=== PATIENT | female | born 1955 | race Caucasian/White ===

== ENCOUNTER 2022-11-01 09:07 | Outpatient (CLI) | payer MEDICARE, BC, SELFPAY ==
[2022-11-01 13:21] LABS: Basophils Absolute Auto 0.04 K/uL (0.00-0.30); Basophils Percent Auto 0.8 % (0.0-3.0); Eosinophils Percent Auto 11.6 % (0.0-7.0); Hematocrit 43.7 % (33.0-51.0); Hemoglobin* 14.7 gm/dL (12.0-16.0); Lymphocytes Percent Auto 24.8 % (20-44); Mean Corpuscular HGB Conc 34 gm/dL (32-36); Mean Corpuscular Hemoglobin 34 pg (26-34); Mean Corpuscular Volume 100 fL (80-100); Monocytes Percent Auto 6.7 % (0.0-11.0); Neutrophils Absolute Auto 2.94 K/uL (1.7-7.0); Neutrophils Percent Auto 56.1 % (42.0-72.0); Platelet Count* 252 K/uL (140-440); RDW Coefficient of Variation % 12.4 % (11.5-15.5); Red Blood Count 4.39 m/uL (4.00-5.20); White Blood Count* 5.24 K/uL (4.50-11.00)
[2022-11-01 13:25] LABS: Slide Review Reflex No
[2022-11-01 14:03] LABS: Vitamin D 25 Hydroxy* 38 ng/mL (30-80)
[2022-11-01 14:51] LABS: Chloride* 106 mmol/L (96-114); Potassium* 4.8 mmol/L (3.6-5.1); Sodium* 141 mmol/L (135-149)
[2022-11-01 14:54] LABS: Blood Urea Nitrogen* 12 mg/dL (7-30); Carbon Dioxide* 26 mmol/L (20-32); Cholesterol* 189 mg/dL (90-199); Creatinine* 0.5 mg/dL (0.5-1.5); Estimated Glomerular Filt Rate 102 ml/min; Glucose* 87 mg/dL (60-115); Triglycerides* 66 mg/dL (40-149)
[2022-11-01 14:55] LABS: Calcium* 9.7 mg/dL (8.4-10.6); HDL Cholesterol* 78 mg/dL (>=50); LDL Cholesterol Calculated 98 mg/dL (<100)
== END 2022-11-01 09:08 | disposition home or self-care (01) ==
PROVIDERS: PCP Nurse Practitioner Family; Visit Provider Nurse Practitioner Family
DX: Z00.00 Encounter for general adult medical examination without abnormal findings (principal); I10 Essential (primary) hypertension; Z13.21 Encounter for screening for nutritional disorder; Z13.0 Encounter for screening for diseases of the blood and blood-forming organs and certain disorders involving the immune mechanism; Z13.6 Encounter for screening for cardiovascular disorders; M85.80 Other specified disorders of bone density and structure, unspecified site; R21 Rash and other nonspecific skin eruption
CPT/HCPCS: 80048; 80061; 82306; 85025

== ENCOUNTER 2024-02-11 08:22 | Outpatient (CLI) | payer MEDICARE, BC, SELFPAY | END 2024-02-11 08:23 | disposition home or self-care (01) | PROVIDERS: PCP Nurse Practitioner Family; Visit Provider Nurse Practitioner Family | DX: I10 Essential (primary) hypertension (principal); Z13.220 Encounter for screening for lipoid disorders | CPT/HCPCS: 85027; 80053; 80061 ==

== ENCOUNTER 2025-02-19 09:10 | Outpatient (CLI) | payer MEDICARE, BC, SELFPAY | END 2025-02-19 09:11 | disposition home or self-care (01) | PROVIDERS: PCP Nurse Practitioner Family; Visit Provider Nurse Practitioner Family | DX: I10 Essential (primary) hypertension (principal); Z13.220 Encounter for screening for lipoid disorders | CPT/HCPCS: 80053; 80061; 85025 ==

== ENCOUNTER 2025-05-20 13:13 | Outpatient (CLI) | payer MEDICARE, BC, SELFPAY ==
--- NOTE | 2025-05-20 13:30 | CRLHL7_ITS ---
For Patients: As a result of the Century Cures Act, medical imaging exams and procedure reports are released immediately into your electronic medical record. You may view this report before your referring provider. If you have questions, please contact your health care provider. XR DXA Bone Mineral Density (BMD) Reason for exam: Osteopenia. Current height (in): 64. Weight (lb): 115. Menopause age: 47. Ethnicity: White. 1. Have you had a previous hip or vertebral fracture? No. 2. Have you had any fractures during your adult life which did not result from significant trauma (e.g., auto accident)? No. 3. Did either of your parents have a hip fracture? No. 4. Do you smoke? No. 5. Have you ever taken Glucocorticoids? No. 6. Do you have rheumatoid arthritis? No. 7. Do you have secondary osteoporosis? No. 8. Do you drink 3 or more alcoholic drinks per day? No. 9. Are you being treated for osteoporosis? No. 10. Have you ever taken any of the following medications: Actonel, Evista, Fosamax, Miacalcin, Reclast, Boniva, Forteo, HRT (i.e. estrogen/hormone therapy), Protelos, Prolia, Vitamin D, Calcium, other ??? please specify. ANSWER: Yes, HRT (i.e. estrogen/hormone therapy), vitamin D, calcium. 11. Do you have any of the following medical conditions: Anorexia or bulimia, asthma or emphysema, end stage renal disease, hyperparathyroidism, any seizure disorders, cancer, inflammatory bowel diseases, hysterectomy, other ??? please specify. ANSWER: No. 12. What was your maximum height (inches)? 64. 13. Do you perform weight bearing exercise regularly? Yes. 14. Do you regularly consume dairy products? Yes. 15. Do you drink caffeinated beverages? No. 16. At what age did your period start? 12. 17. Are you premenopausal? No. 18. How many full term pregnancies have you had? 3. 19. Have you ever missed your period for more than 6 months in a row (not including or menopause)? No. TECHNIQUE: Bone mineral density study was performed using the Vizimax. FINDINGS: The results of the study expressed as bone mineral density (BMD) are as follows: Lumbar spine L1 to L4: BMD: 1.074 g/cm2. T-score: 0.2. Z-score: 2.4. Radius Left 33%: BMD: 0.497 g/cm2. T-score: -3.3. Z-score: -1.1. IMPRESSION: Osteoporosis. Mat Cortés M.D. Diagnostic Radiologist [email or web address] bM/Dictated by: Mat Cortés MD @ 05/20/2025 3:55:00 PM (Electronically Signed)
--- NOTE | 2025-05-20 14:00 | CRLHL7_ITS ---
For Patients: As a result of the Century Cures Act, medical imaging exams and procedure reports are released immediately into your electronic medical record. You may view this report before your referring provider. If you have questions, please contact your health care provider. INDICATION: BILATERAL SCREENING MAMMOGRAM, ASYMPTOMATIC 69 Y/O FEMALE COMPARISON: 01/23/2024, 01/21/2023, 01/12/2022 TECHNIQUE: Digital mammogram in CC and MLO projections including computer-aided detection (CAD) and tomosynthesis. BREAST COMPOSITION: There are scattered areas of fibroglandular density. FINDINGS: No suspicious findings. ASSESSMENT: BI-RADS 1 Negative RECOMMENDATION: Annual screening mammogram. A lay language report of this examination will be provided to the patient. Dictated by: Mat Cortés MD @ 05/21/2025 10:10:46 (Electronically Signed)
--- OUTSIDE RECORDS SUMMARY | 2025-05-21 00:56 | XMS_ITS | Encounter Summary ---
Author Organization [facility] er Address [address] [place] [address] Care Team Providers Care Metal Model Maker Name Role Phone BrumfieldFarnaz APRN, TEST DIRECTOR Primary Care Provi yo Reason for Visit * Reason Comments Med Refill Encounter Details Date Type Department Care Team (Late st Contact Info) Description 06/12/2022 Refill [place] [address] [address] [place] [address] [place] [id number] Rash Social History Tobacco Use Types Packs/Day Years Used Date Smoking Tobacco: Former Cigarettes Q uit: 2002 Smokeless Tobacco: Never Alcohol Use Standard Drinks/Week Comments Yes 0 (1 standard drink = 0.6 oz pur e alcohol) Humiliation, Afraid, Rape, and Kick questionnair e Answer Date Recorded Fear of Current or Ex-Partner No Emotionally Abused No 09/04/2019 Physically Abused No 09/04/2019 Sexually Abused No 09/04/2019 Social Connection and Isolat ion Panel [NHANES] Answer Date Recorded Frequency of Communication w ith Friends and Family More than three times a week 09/04/2019 Frequency of Social Gatherin gs with Friends and Family More than three times a week 09/04/2019 Attends Voodoo Services Never 09/04 Active Member of Clubs or Organizations No 09/04/2019 Attends Club or Organization Meetings Never 09/04/2019 Marital Status 09/04/2019 AUDIT-C Answer Date Recorded Q1: How often do you have a drink containing alc ohol? Never 12/27/2020 Q2: How many drinks containi ng alcohol do you have on a typical day when you are drinking? 1 or 2 12/27/2020 Frequency of Binge Drinking Not on file 12/2020 Overall Financial Resource Strain (CARDIA) Answe r Date Recorded How hard is it for you to pa y for the very basics like food, housing, medical care, and heating? Not hard at all 12/27/2020 PHQ-2 Answer Date Recorded PHQ-9 Total Score 0 10/06/2020 [facility] - Occupational Stress Questionnaire Answer Date Recorded Feeling of Stress Only a little 09/04/2019 Exercise Vital Sign Answer Date Recorde d Days of Exercise per Week 7 days 2018 Minutes of Exercise per Session 50 min 09/04/2019 Hunger Vital Sign Answer Date Recorded Within the past 12 months, y ou worried that your food would run out before you got the money to buy more. Never true 12/27/19 21 Within the past 12 months, t he food you bought just didn't last and you didn't have money to get more. Never true 12/27/2020 PRAPARE - Transportation Answer Date Re corded In the past 12 months, has l ack of transportation kept you from medical appointments or from getting medications? No 12/2020 In the past 12 months, has l ack of transportation kept you from meetings, work, or from getting things needed for daily living? No 12/27/2020 Comments No Sex and Gender Information Value Date Recorded Sex Assigned at Not on file Legal Sex Female 8:27 PM CDT Gender Identity Not on file Sexual Orientation Not on file documented as of this encounter Miscellaneous Notes * Telephone Encounter - Sandee Fraga - 06/14/2022 1:41 PM CDT Contacted to make med review appt; not interested at this time. * Telephone Encounter - Minna Pizano RN - 06/14/2022 12:54 PM CDT Please call the patient to schedule a medication review if she'd like * Telephone Encounter - Minna Pizano RN - 06/12/2022 11:56 AM CDT Review medication request. * Telephone Encounter - Genoveva Smyth LPN - 06/12/2022 11:30 AM CDT Last visit in provider department: 12/27/2020 Last visit requested medication was discussed: 10/06/2020 Last Rx: 30g with 0 refills 11/02/2021 Requested Prescriptions Pending Prescriptions Disp Refills ??? triamcinolone (KENALOG) 0.1 % cream [Pharmacy Med Name: TRIAMCINOLONE ACETONIDE 0.1% CREA] 30 g0 Sig: APPLY TO AFFECTED AREA(S) 1-2 TIMES A DAY NEEDED Labs: N/A Vitals: BP Readings from Last 2 Encounters: 12/27/20 120/72 10/06/20 122/68 Upcoming appointment with provider: Visit date not found Patient is due for Annual Well Adult Exam appointment. PSR/Nurse: Please contact patient to assist with scheduling. documented in this encounter Plan of Treatment Not on file documented as of this encounter Visit Diagnoses Diagnosis Rash Rash and other nonspecific skin eruption documented in this encounter Care Teams Metal Model Maker Relationship Specialty Start Date End Date Farnaz Brumfield, DIRECTOR HUMAN SERVICES, TEST DIRECTOR [address] [place] [address] PCP - General Family Medicine 06/25/22 documented as of this encounter
--- OUTSIDE RECORDS SUMMARY | 2025-05-21 00:56 | XMS_ITS | Encounter Summary ---
Author Organization [facility] er Address [address] [place] [address] Care Team Providers Care Label Maker Name Role Phone Farnaz Brumfield APRN, REPAIR SERVICE CLERK Primary Care Provi yo Encounter Details Date Type Department Care Team (Late st Contact Info) Description 09/24/2019 Telephone Dajuan Ramos [address] [place] [address] Farnaz Brumfield, SILVIA, REPAIR SERVICE CLERK [address] [id number] Social History Tobacco Use Types Packs/Day Years Used Date Smoking Tobacco: Former Smokeless Tobacco: Never Alcohol Use Standard Drinks/Week [...] than three times a week 09/04/2019 Attends Taoist Services Never 09/04 Active Member of Clubs or Organizations No 09/04/2019 Attends Club or Organization Meetings Never 09/04/2019 Marital Status 09/04/2019 AUDIT-C Answer Date Recorded Frequency of Alcohol Consumption Never 09/17/2018 Average Number of Drinks 1 or 2 018 Frequency of Binge Drinking Not on file 08/26 Overall Financial Resource Strain (CARDIA) Answe r Date Recorded Difficulty of Paying Living Expenses Not hard at all 09/04/2019 PHQ-2 Answer Date Recorded PHQ-2 Score 0 03/25/2019 [facility] - Occupational Stress Questionnaire Answer Date Recorded Feeling of Stress Only a little 09/04/2019 Exercise Vital Sign Answer Date Recorde d Days of Exercise per Week 7 days 2018 Minutes of Exercise per Session 50 min 09/04/2019 Hunger Vital Sign Answer Date Recorded Worried About Running Out of Food in the Last Ye ar Never true 09/04/2019 Ran Out of Food in the Last Year Never true 09/04/2019 PRAPARE - Transportation Answer Date Re corded Lack of Transportation (Medical) No 09/04/2019 Lack of Transportation (Non-Medical) No 09/04/2019 Comments No Sex and Gender Information Value Date Recorded Sex Assigned at Not on file Legal Sex Female 8:27 PM CDT Gender Identity Not on file Sexual Orientation Not on file documented as of this encounter Plan of Treatment Not on file documented as of this encounter Visit Diagnoses Not on filedocumented in this encounter Care Teams Label Maker Relationship Specialty Start Date End Date Farnaz Brumfield, PELLETISING EXTRUDER OPERATOR, REPAIR SERVICE CLERK [address] [place] [address] PCP - General Family Medicine 06/25/22 documented as of this encounter
--- OUTSIDE RECORDS SUMMARY | 2025-05-21 00:56 | XMS_ITS | Clinical Summary ---
Author Organization [facility] Address [address] [place] [address] Care Team Providers Care Oil Field Equipment Mechanic Name Role Phone Rosario Posey Unavailable [phone] Rosario Posey Primary Care Provider [phone] Allergies No known active allergies Medications triamcinolone (ARISTOCORT) 0.1 % ointmentIndicat ions:Dyshidroti c dermatitis APPLY TOPICALLY TO AFFECTED AREA (S) TWICE A DAY 30 g 5 1 Active lisinopril (PRINIVIL; ZESTRIL) 10 mg tablet TAKE ONE TABLET BY MOUTH ONCE DAILY 30 tablet 0 1 Active conjugated estrogens-medro xyPROGESTERone, 0.45-1.5 mg, (PREMPRO LOW DOSE) 0.45-1.5 mg per tablet Take 1 tablet by mouth once daily. 30 tablet 0 2 Active conjugated estrogens-medro xyPROGESTERone, 0.3-1.5 mg, (PREMPRO) 0.3-1.5 mg per tablet Take 1 tablet by mouth once daily. 90 tablet 0 3 Active Active Problems Problem Noted Date Diagnosed Date Hypertension 05/24/2010 Immunizations Immunization Administration Dates Next Due Influenza, IIV3 (Age >=3 years) 09/16/2012 Tdap 02/12/2011 Family History Medical History Relation Name Comments Heart Disease Brother Miguel Bypass x4 @ear ly 60's Heart Disease Father Arthritis Mother Heart Disease Mother Arthritis Sister Relation Name Status Comments Brother Miguel Father (Age 58) Maternal Grandfather Maternal Grandmother Mother (Age 63) Paternal Grandfather Paternal Grandmother Sister Social History Tobacco Use Types Packs/Day Years Used Date Smoking Tobacco: Former Cigarettes 0.5 20 0 11/29/1987 - 11/29/2007 Smokeless Tobacco: Never Alcohol Use Standard Drinks/Week Comments Yes 0 (1 standard drink = 0.6 oz pur e alcohol) occ'l glass of wone Comments No Sex and Gender Information Value Date Recorded Sex Assigned at Not on file Legal Sex Female 5:24 AM CERTIFIED ATHLETIC TRAINER Gender Identity Not on file Sexual Orientation Not on file Obstetrics History Para Term AB IAB SAB Ectopic Multiple Livin g Live Births 3 3 3 Date Outcome GA Total Labor Labor/2nd/3rd Weight Sex Type Anes PTL Myriam A1 A5 Name Clin Para Vag Para Vag Para Vag Last Filed Vital Signs Vital Sign Reading Time Taken Comments Blood Pressure 132/72 09/16/2012 2:36 PM CDT Pulse 88 09/16/2012 2:36 PM CDT Temperature 37.1 C (98.8 F) 02/12/2011 1:24 PM CDT Respiratory Rate - - Oxygen Saturation 98% 02/12/2011 1:24 PM CDT Inhaled Oxygen Concentration - - Weight 61.7 kg (136 lb) 09/16/2012 2:36 PM CDT Height 165.1 cm (5' 5) 09/16/2012 2:36 PM CDT Body Mass Index 22.63 09/16/2012 2:36 PM CDT Plan of Treatment Health Maintenance Due Date Last Done Comments Depression screening for age 12+ 1966 BMI (ht and wt on same day) for age 18+ 1972 Hepatitis C screening for ag e 18-79 1972 Colonoscopy through age 75 1999 Lipids for age 45-75 1999 Pneumococcal series for age 50+ (1 of 1 - PCV) 2004 Zoster (shingles) series for age 50+ (1 of 2) 2004 DEXA/DXA scan for age 65+ 2019 Tetanus booster 02/12/2021 02/12/2011 Mammogram for age 45-75 01/12/2023 01/12/20 22, 09/10/2012, 07/15/2010 COVID-19 vaccine series (2023- season) 2024 Influenza Vaccine (Season Ended) 2025 09/16/2012 RSV vaccine for adults or (1 - 1-dose 75+ series) 2029 Tdap Completed 02/12/2011 Hepatitis B series for 19+ Aged Out N o longer eligible based on patient's age to complete this topic Procedures Procedure Name Priority Date/Time Associated Diagnosis Comments SCAN-MAMMOGRAPHY REPORT 01/12/2022 12:00 AM CERTIFIED ATHLETIC TRAINER from Last 3 Months or Most Recently Relevant to Health Maintenance Results * SCAN-MAMMOGRAPHY REPORT (01/12/2022 12:00 AM CERTIFIED ATHLETIC TRAINER) Anatomical Region Laterality Modality Other us Scanner OTHER Final Result from Last 3 Months or Most Recently Relevant to Health Maintenance Insurance [employer] CHO[employer] Care Teams Oil Field Equipment Mechanic Relationship Specialty Start Date End Date Rosario Posey PA [address] [place] [address] PCP - General Physician Bag Sorter 08/09/11 Rosario Posey PA [address] [place] [address] Physician Bag Sorter 08/09/11
--- OUTSIDE RECORDS SUMMARY | 2025-05-21 00:56 | XMS_ITS | Encounter Summary ---
Author Organization [facility] er Address [address] [place] [address] Care Team Providers Care Validation Technician Name Role Phone Farnaz Brumfield APRN, LEVI Primary Care Provi yo Reason for Visit * Reason Onset Date Comments Med Refill 11/04/2018 Encounter Details Date Type Department Care Team (Late st Contact Info) Description 11/04/2018 Refill [place] [address] [place] [address] Farnaz Brumfield APRN, COMPARATOR OPERATOR [address] [address] Social History Tobacco Use Types Packs/Day Years Used Date Smoking Tobacco: Former Smokeless Tobacco: Never Alcohol Use Standard Drinks/Week Comments Yes 0 (1 standard drink = 0.6 oz pur e alcohol) AUDIT-C Answer Date Recorded Frequency of Alcohol Consumption Never 09/17/2018 Average Number of Drinks 1 or 2 018 Frequency of Binge Drinking Not on file 08/26 Comments Unknown Sex and Gender Information Value Date Recorded Sex Assigned at Not on file Legal Sex Female 8:27 PM CDT Gender Identity Not on file Sexual Orientation Not on file documented as of this encounter Plan of Treatment Not on file documented as of this encounter Visit Diagnoses Not on filedocumented in this encounter Care Teams Validation Technician Relationship Specialty Start Date End Date Farnaz Brumfield APRN, COMPARATOR OPERATOR [address] [place] [address] PCP - General Family Medicine 06/25/22 documented as of this encounter
--- OUTSIDE RECORDS SUMMARY | 2025-05-21 00:56 | XMS_ITS | Clinical Summary ---
Author Organization [facility] er Address [address] [place] [address] Care Team Providers Care Risk Management Director Name Role Phone BrumfieldFarnaz APRN, TRAINING ADMINISTRATOR Primary Care Provi yo Allergies Active Allergy Reactions Criticality Noted Date Comments Cephalexin Nausea And Vomiting Medium 12/06/2021 Patient throwing up repeatedly after taking prior to dental appointment. Oxycodone Nausea And Vomiting Medium 12/06/2021 Violently throwing up Medications UNABLE TO FIND Med Name: Ian SILVERMAN ROOT Active lisinopril (ZESTRIL) 10 MG tabletIndication s:Essential hypertension Take 1 tablet (10 mg total) by mouth 1 (one) time each day 90 tablet 3 0 Active triamcinolone (KENALOG) 0.1 % creamIndications :Rash APPLY TO AFFECTED AREA(S) ONE TO TWO TIMES A DAY NEEDED 30 g 1 Active Additional Information Patient not taking.Reported on 03/22/2025 diphenhydrAMINE (BENADRYL) 25 MG tablet Take 1 tablet (25 mg total) by mouth every 6 (six) hours if needed for itching Active cetirizine (ZyrTEC ALLERGY) 10 MG tabletIndication s:Hives Take 1 tablet (10 mg total) by mouth 1 (one) time each day 30 tablet 1 4 Active Additional Information Patient not taking.Reported on 03/22/2025 loratadine (Claritin) 10 MG tabletIndication s:Hives 1 tablet po bid prn hives 60 tablet 2 4 Active Additional Information Patient not taking.Reported on 03/22/2025 hydrocortisone 2.5 % creamIndications :Hives APPLY TOPICALLY TO AFFECTED AREA(S) TWO TIMES DAILY NEEDED 20 g 5 Active celecoxib (CeleBREX) 200 MG capsuleIndicatio ns:Greater trochanteric bursitis of right hip Take 1 capsule (200 mg total) by mouth 1 (one) time each day Take with food. 30 capsule 5 Active Active Problems Problem Noted Date Diagnosed Date Hypertension 05/24/2010 Overview (12/27/2020): Overview: HTN [Hypertension] onset unknown Overview: Hypertension Essential (401.9) Encounters Date Type Department Care Team Description 03/22/2025 2:40 PM CDT Office Visit [facility] [address] [place] [address] Cuong Lee MD Greater trochanteric bursitis of right hip (Primary Dx) 02/27/2025 [facility]ill [facility] [address] [place] [address] Mat Najera MD Hives from Last 3 Months Immunizations Immunization Administration Dates Next Due COVID-19, mRNA, LNP-S, PF, 3 0mcg/0.3mL dose Pfizer 01/20/2021 Flu Vaccine High Dose 65yrs and Older IM 022,11/01/2021,10/06/2020 Influenza, Split Virus, Triv alent, Preservative 09/07/2014,09/16/2012 Influenza, Unspecified 09/23/2012 Pneumococcal Conjugate PCV20 11/01/2022 Td 05/10/2008 Tdap 11/01/2022,02/12/2011 Family History Medical History Relation Comments Cancer Brother LUNG CANCER Heart disease Brother Heart attack Father Heart disease Father Heart attack Mother Heart disease Mother Relation Status Comments Brother Daughter 1 Alive Daughter 2 Alive Father Mother Sister 1 Alive Sister 2 Alive Son Alive Social History Tobacco Use Types Packs/Day Years Used Date Smoking Tobacco: Former Cigarettes Q uit: 2002 Smokeless Tobacco: Never Tobacco Cessation:Counseling Given: Not Answered Alcohol Use Standard Drinks/Week Comments Yes 0 (1 standard drink = 0.6 oz pur e alcohol) B1300 Health Literacy Answer Date Recor ded How often do you need to hav e someone help you when you read instructions, pamphlets, or other written material from your doctor or pharmacy? Never 03/22/2025 [facility] Utilities Answer Date Recorded In the past 12 months has th e [email or web address], gas, oil, or water company threatened to shut off services in your home? No 03/22/2025 Humiliation, Afraid, Rape, and Kick questionnair e Answer Date Recorded Within the last year, have y ou been afraid of your partner or ex-partner? No 03/22/2025 Within the last year, have y ou been humiliated or emotionally abused in other ways by your partner or ex-partner? No Within the last year, have y ou been kicked, hit, slapped, or otherwise physically hurt by your partner or ex-partner? No 03/22/2025 Within the last year, have y ou been raped or forced to have any kind of sexual activity by your partner or ex-partner? No 03/22/2025 Social Connection and Isolat ion Panel [NHANES] Answer Date Recorded In a typical week, how many times do you talk on the phone with family, friends, or neighbors? More than three times a week 03/22/2025 How often do you get togethe r with friends or relatives? More than three times a week 03/22/2025 How often do you attend chur ch or samaritan services? Never 03/22/2025 Do you belong to any clubs o r organizations such as latter-day groups, unions, fraternal or athletic groups, or school groups? No 03/22/2025 How often do you attend meet ings of the clubs or organizations you belong to? Never 03/22/2025 Are you , , di vorced, , never , or living with a partner? 03/22/2025 AUDIT-C Answer Date Recorded Q1: How often [...] care, and heating? Not hard at all 03/22/2025 PHQ-2 Answer Date Recorded PHQ-9 Total Score 0 10/06/2020 [facility] - Occupational Stress Questionnaire Answer Date Recorded Do you feel stress - tense, restless, nervous, or anxious, or unable to sleep at night because your mind is troubled all the time - these days? Only a little 03/22/2025 Exercise Vital Sign Answer Date Recorde d On average, how many days pe r week do you engage in moderate to strenuous exercise (like a brisk walk)? 7 days 03/22/2025 On average, how many minutes do you engage in exercise at this level? 50 min 03/22/2025 Hunger Vital Sign Answer Date Recorded Within the past 12 months, y ou worried that your food would run out before you got the money to buy more. Never true 03/22/20 25 Within the past 12 months, t he food you bought just didn't last and you didn't have money to get more. Never true 03/22/2025 PRAPARE - Transportation Answer Date Re corded In the past 12 months, has l ack of transportation kept you from medical appointments or from getting medications? No 02/24 In the past 12 months, has l ack of transportation kept you from meetings, work, or from getting things needed for daily living? No 03/22/2025 Interpersonal Safety Questionnaire Answer Date Recorded How often does anyone, renee machado family and friends, physically hurt you? Never 03/22/2025 How often does anyone, renee machado family and friends, insult or talk down to you? Never 03/22/2025 How often does anyone, renee machado family and friends, threaten you with harm? Never 03/22/2025 How often does anyone, channingandria carter family and friends, threaten you with harm? Never 03/22/2025 Comments No Sex and Gender Information Value Date Recorded Sex Assigned at Not on file Legal Sex Female 8:27 PM CDT Gender Identity Not on file Sexual Orientation Not on file Last Filed Vital Signs Vital Sign Reading Time Taken Comments Blood Pressure 128/68 03/22/2025 2:55 PM CDT Pulse 73 03/22/2025 2:55 PM CDT Temperature 36.8 C (98.2 F) 03/22/2025 2:55 PM CDT Respiratory Rate 16 03/22/2025 2:55 PM CDT Oxygen Saturation 93% 03/22/2025 2:55 PM CDT Inhaled Oxygen Concentration - - Weight 54.2 kg (119 lb 8 oz) 03/22/2025 2:55 PM CDT Height 165 cm (5' 4.96) 03/22/2025 2:55 PM CDT Body Mass Index 19.91 03/22/2025 2:55 PM CDT Plan of Treatment Health Maintenance Due Date Last Done Comments CT Colonography 1954 Colonoscopy 1954 Colorectal Cancer Screening 1954 FIT-DNA 1954 Sigmoidoscopy 1954 iFOBT 1955 Medicare Annual Wellness Visit (AWV) 1972 Zoster Vaccines (1 of 2) 2004 COVID-19 Vaccine ( season) 2024 11/01/2021, 02/10/2021, 01/20/2021 Mammogram 01/22/2025 01/23/2024, 12/27, 01/21/2023, Additional history exists Influenza Vaccine (Season Ended) 2025 11/01/2022, 11/01/2021, 10/06/2020, Additional history exists Fall Risk Performed 03/22/2026 03/22/2025 Bone Density Scan 01/21/2028 01/21/2023, , 09/23/2019, Additional history exists DTaP,Tdap,and Td Vaccines (3 - Td or Tdap) 11/01/2032 11/01/2022, 02/12/2011, 05/10/2008 Pneumococcal Vaccine: 50+ Years Completed 11/01/2022 HPV Vaccines Aged Out No longer eligi ble based on patient's age to complete this topic Procedures Procedure Name Priority Date/Time Associated Diagnosis Comments MAMMOGRAM BREAST SCREENING BILATERAL Routine 06/14/2017 12:03 PM CDT DEXA BONE DENSITY Routine 03/11/2015 10: 07 AM CDT from Last 3 Months or Most Recently Relevant to Health Maintenance Results * Mammogram breast screening bilateral (06/14/2017 12:03 PM CDT) Anatomical Region Laterality Modality Breast Bilateral Mammography 06/14/2017 12:0 3 PM CDT Narrative 06/17/2017 11:44 AM CDT Exam Description MAMMOGRAM BILATERAL SCREENING DIGITAL/SELF REQST Clinical History Screening Presenting Diagnosis Screening Mammography Risk Factors Personal: Post-menopausal patient Family: No family history of breast cancer Comparison Comparison is made to images from 03/21/2016 (bilateral) and images from 03/11/2015 (bilateral). There is no significant interval change. Findings Bilateral Breast Findings: There are scattered fibroglandular densities (25% - 50% fibroglandular). No significant masses, calcifications or other abnormalities are seen. Impression BILATERAL BREASTS Negative, no evidence of malignancy. Normal interval follow-up is recommended in 12 months. OVERALL ASSESSMENT - CATEGORY 1 - NEGATIVE CAD Review Computer aided detection equipment was used during the interpretation of this study. - Procedure Note Mat Cortés MD - 08/17/2018 Exam Description MAMMOGRAM BILATERAL SCREENING DIGITAL/SELF REQST Clinical History Screening Presenting Diagnosis Screening Mammography Risk Factors Personal: Post-menopausal patient Family: No family history of breast cancer Comparison Comparison is made to images from 03/21/2016 (bilateral) and images from 03/11/2015 (bilateral). There is no significant interval change. Findings Bilateral Breast Findings: There are scattered fibroglandular densities (25% - 50% fibroglandular). No significant masses, calcifications or other abnormalities are seen. Impression BILATERAL BREASTS Negative, no evidence of malignancy. Normal interval follow-up is recommended in 12 months. OVERALL ASSESSMENT - CATEGORY 1 - NEGATIVE CAD Review Computer aided detection equipment was used during the interpretation of this study. - Farnaz Brumfield APRN, TRAINING ADMINISTRATOR IMG BI PROCEDURES E dited Result - Final * Dexa bone density axial skeleton (03/11/2015 10:07 AM CDT) Anatomical Region Laterality Modality Wrist, Hip, L-spine Radiographic Imaging 03/11/2015 10:0 7 AM CDT Narrative 03/11/2015 10:49 AM CDT Clinical History menopausal and low calcium; Indication for exam: Hypocalcemia; Select if this is not a new diagnosis: New Diagnosis; Current treatment: Currently on treatment for bone loss (indicate drug name in comments); Comparison None Findings DXA SCAN AP spine L1 through L4 bone mineral density is 1.276 grams per cm squared (T-score 0.8 ). Left femoral neck bone mineral density is 0.919 grams per cm squared (T-score -0.9 ). Left femoral total bone mineral density is 0.906 grams per cm squared (T-score -0.8 ). Impression AP spine L1 through L4 total T-score is considered normal. Or Left femoral total mean T-score is considered normal. National Osteoporosis Foundation Guidelines recommend initiating therapy to reduce fracture risk in patients with bone mineral density T-score below -1.5 with risk factors present or below -2 without risk factors. Follow-up DXA exam in 1-2 years may be helpful in monitoring response to therapy. Definition of T-score: T-score is the number of standard deviations that the bone mineral density is above or below the mean compared to young adult normal standard. If the T-score is 0.0, then the bone mineral density is equal to the mean compared to young adult normal standard. Normal, osteopenic and osteoporotic are defined as follows when referencing the T-score: Normal: T-score at or above -1 Osteopenic: T-score between -1 and -2.5 Osteoporotic: T-score at or below -2.5 Procedure Note Shabbir Singh - 08/17/2018 Clinical History menopausal and low calcium; Indication for exam: Hypocalcemia; Select if this is not a new diagnosis: New Diagnosis; Current treatment: Currently on treatment for bone loss (indicate drug name in comments); Comparison None Findings DXA SCAN AP spine L1 through L4 bone mineral density is 1.276 grams per cm squared (T-score 0.8 ). Left femoral neck bone mineral density is 0.919 grams per cm squared (T-score -0.9 ). Left femoral total bone mineral density is 0.906 grams per cm squared (T-score -0.8 ). Impression AP spine L1 through L4 total T-score is considered normal. Or Left femoral total mean T-score is considered normal. National Osteoporosis Foundation Guidelines recommend initiating therapy to reduce fracture risk in patients with bone mineral density T-score below -1.5 with risk factors present or below -2 without risk factors. Follow-up DXA exam in 1-2 years may be helpful in monitoring response to therapy. Definition of T-score: T-score is the number of standard deviations that the bone mineral density is above or below the mean compared to young adult normal standard. If the T-score is 0.0, then the bone mineral density is equal to the mean compared to young adult normal standard. Normal, osteopenic and osteoporotic are defined as follows when referencing the T-score: Normal: T-score at or above -1 Osteopenic: T-score between -1 and -2.5 Osteoporotic: T-score at or below -2.5 Deidre Cade [facility]ED[place] Edited Result - Final from Last 3 Months or Most Recently Relevant to Health Maintenance Insurance MEDICARE [facility] MEDICARE BC [place] Care Teams Risk Management Director Relationship Specialty Start Date End Date Farnaz Brumfield, ENERGY CROP FARMER, TRAINING ADMINISTRATOR [address] [place] [id number] PCP - General Family Medicine 06/25/22
--- OUTSIDE RECORDS SUMMARY | 2025-05-21 00:56 | XMS_ITS | Clinical Summary ---
Author Organization [facility] Address [address] [place] [address] Care Team Providers Care Dimension Specification Inspector Name Role Phone Elsewhere, Pcp Primary Care Provider Unavailabl e Source Comments Patient records contain information from all sites at [facility]. For routine questions regarding patient records, call [phone] during business hours, M-F 8:00 AM - 5:00 PM Central Time. Record requests for emergency care only can be directed to [phone] at any time.[facility] Allergies Active Allergy Reactions Criticality Noted Date Comments Cephalexin GI intolerance Medium 12/06/2021 Patient throwing up repeatedly after taking prior to dental appointment. Oxycodone GI intolerance Medium 12/06/2021 Violently throwing up Medications estradiol (ESTRACE) 0.5 mg tablet TK 1 T PO QD 3 08/13/20 18 Active lisinopril (PRINIVIL,ZESTRIL) 10 mg tablet TK 1 T PO D 3 08/13/20 18 Active medroxyPROGESTERon e (PROVERA) 2.5 mg tablet TK 1 T PO QD 3 08/13/20 18 Active lisinopriL (PRINIVIL,ZESTRIL) 10 mg tablet Take 10 mg by mouth. 10/06/20 20 Active triamcinolone (KENALOG) 0.1 % cream APPLY TO AFFECTED AREA 1-2 TIMES DAILY NEEDED 10/06/20 20 Active UNABLE TO FIND Med Name: Black COHASH ROOT Active polyethylene glycol (MIRALAX) 17 gram/dose oral powder Drink 1st half of the prep solution at 6 PM the evening before your colonoscopy. Take 2nd half 4 hours before your colonoscopy arrival time. 238 g 10/07/20 20 Active cephalexin (KEFTAB) 500 mg tablet Take 500 mg by mouth. Active ondansetron ODT (ZOFRAN-ODT) 4 mg disintegrating tablet Take 1 tablet (4 mg total) by mouth every 12 (twelve) hours. 10 tablet 11/28/19 22 Active ketorolac (ACULAR) 0.5 % ophthalmic solution Administer 1 drop into the left eye 4 (four) times a day. Starting 12/23/2021 and use as directed. 5 mL 12/23/19 22 Active Additional Information Patient taking differently:1 drop left eye2 times daily, Starting 12/23/2021 and use as directed., Reported on 01/01/2022 prednisoLONE acetate (PRED FORTE) 1 % ophthalmic suspension Administer 1 drop into the left eye 4 (four) times a day. Starting 12/23/2021 and use as directed. 5 mL 12/23/19 22 Active Additional Information Patient taking differently:1 drop left eye2 times daily, Starting 12/23/2021 and use as directed., Reported on 01/01/2022 moxifloxacin (VIGAMOX) 0.5 % ophthalmic solution Administer 1 drop into the left eye 4 (four) times a day. starting 12/23/2021 and use as directed 3 mL 12/23/19 22 Active Additional Information Patient not taking.Reported on 01/09/2022 ketorolac (ACULAR) 0.5 % ophthalmic solution Administer 1 drop into the right eye 4 (four) times a day. Starting 01/06/2022 and use as directed. 5 mL 01/06/20 22 Active prednisoLONE acetate (PRED FORTE) 1 % ophthalmic suspension Administer 1 drop into the right eye 4 (four) times a day. Starting 01/06/2022 and use as directed. 5 mL 01/06/20 22 Active moxifloxacin (VIGAMOX) 0.5 % ophthalmic solution Administer 1 drop into the right eye 4 (four) times a day. Starting 01/06/2022 and use as directed. 3 mL 01/06/20 22 Active Active Problems Problem Noted Date Diagnosed Date Cataract Senile Nuclear Sclerosis Bilateral 11/2020 Overview (10/25/2021): Added automatically from request for surgery [id number] Screening Colon Cancer Average Risk 10/07/2020 Overview (10/07/2020): Added automatically from request for surgery [id number] Hypertension 10/03/2012 Overview (04/16/2017): Hypertension Essential (401.9) Hypertension 01/23/2011 Overview (04/16/2017): HTN [Hypertension] onset unknown Immunizations Immunization Administration Dates Next Due Influenza high dose QV(65 years or older) (PF) 1 01/02/2021 Influenza, Unspecified 09/23/2012 SARS-COV-2 (COVID-19) - PFIZ ER (Discontinued)(12 years or older) 11/01/2021 Td (Adult), adsorbed 05/10/2008 Family History Medical History Relation Name Comments Migraines Brother Heart attack Father Heart attack Mother Heart disease Mother Migraines Sister Migraines Son Relation Name Status Comments Brother Father Mother Sister Son Social History Tobacco Use Types Packs/Day Years Used Date Smoking Tobacco: Former Smokeless Tobacco: Never Alcohol Use Standard Drinks/Week Comments Yes 0 (1 standard drink = 0.6 oz pur e alcohol) social Comments No Sex and Gender Information Value Date Recorded Sex Assigned at Not on file Legal Sex Female 8:10 AM [place] Gender Identity Not on file Sexual Orientation Not on file Last Filed Vital Signs Vital Sign Reading Time Taken Comments Blood Pressure 119/69 08/26/2023 7:30 PM CDT Pulse 88 08/26/2023 7:30 PM CDT Temperature 37.4 C (99.3 F) 08/26/2023 6:21 PM CDT Respiratory Rate 21 08/26/2023 7:30 PM CDT Oxygen Saturation 93% 08/26/2023 7:30 PM CDT Inhaled Oxygen Concentration - - Weight 56.2 kg (123 lb 14.4 oz) 022 10:26 AM [place] Height 165 cm (5' 4.96) 12/06/2021 10: 26 AM [place] Body Mass Index 20.64 12/06/2021 10:26 AM [place] Plan of Treatment Health Maintenance Due Date Last Done Comments CT Colonography 1954 Cologuard 1954 Colonoscopy 1954 Colorectal Cancer Screening 1954 FIT 1954 Hepatitis C Screening 1954 Office Visit for Blood Pressure Check / Re-check 1954 Zoster Vaccines (1 of 2) 2004 COVID-19 Vaccine ( season) 2024 11/01/2021, 02/10/2021, 01/20/2021 Influenza Vaccine (#1) 2024 , 11/01/2021, 10/06/2020, Additional history exists Creatinine Level (Kidney Function Test) 08/26/2024 08/26/2023, 12/27/2020, 10/24/2020, Additional history exists Potassium Level 08/26/2024 08/26/2023, 02/0 12/2020, 10/24/2020, Additional history exists Sodium Level 08/26/2024 08/26/2023, 02/0 12/2020, 10/24/2020, Additional history exists Depression Screening (Annual PHQ-2) 11/25/2024 Fall Risk Screen (Annual) 11/25/2024 Mammogram 01/22/2025 01/23/2024, /2 05/2023, 01/12/2022, Additional history exists Fasting Glucose for Diabetes Screening 08/26/2026 08/26/2023, 10/07/2012 DTaP,Tdap,and Td Vaccines (3 - Td or Tdap) 11/01/2032 11/01/2022, 02/12/2011, 05/10/2008 Cervical/Vaginal Cancer Screening Discontinued 09/23/2012 Pneumococcal vaccine (50+ years) Completed 11/01/2022 IPV Vaccines Aged Out No longer eligi ble based on patient's age to complete this topic Medical Devices Implanted Type Area Limb Driver Device Identifier Shelf Expiration Date Model / Serial / Lot Hip Implant Hip Implant Bilater al: Hip Lens Tcn [id number] Bicnvx +20.0d - [id number] - [id number] Implanted:Qty : 1 on 12/25/2021 by Gagandeep Mccartney M.D. at [facility] Ocular Lens Left: Eye [employer] (Previously CARISA) [id number] 10/12/2025 [id number] / [id number] / Lens Tcn [id number] Bicnvx +21.0d - [id number] - [id number] Implanted:Qty : 1 on 01/08/2022 by Gagandeep Mccartney M.D. at [facility] Ocular Lens Right: Eye [employer] (Previously CARISA) [id number] 09/26/2025 [id number] / [id number] / Procedures Procedure Name Priority Date/Time Associated Diagnosis Comments BI BREAST SCREENING BILATERAL WITH TOMOSYNTHESIS RAD - Routine (most inpatients and all outpatients) 01/23/2024 8:36 AM [place] Screening Mammogram Breast Cancer BASIC METABOLIC PANEL, S/P STAT 08/26/2023 6:31 PM CDT from Last 3 Months or Most Recently Relevant to Health Maintenance Results * BI Breast Screening Bilateral with Tomosynthesis (01/23/2024 8:36 AM [place]) Anatomical Region Laterality Modality Breast, Breast Imaging RST L OS, Breast Imaging ARZ LOS, Breast Imaging FLA LOS Bilateral Mammography Impressions 01/24/2024 8:50 AM [place] Negative. RECOMMENDATION: Annual Screening Mammogram ASSESSMENT: BI-RADS: 1: Negative. Narrative 01/24/2024 8:50 AM [place] EXAM: BI BREAST SCREENING BILATERAL WITH TOMOSYNTHESIS Current study was evaluated with a Computer Aided Detection (CAD) system. INDICATION: Screening mammogram. COMPARISON: Prior exam(s) were available and reviewed for comparison. DENSITY: c. The breast(s) are heterogeneously dense, which may obscure small masses. FINDINGS: No mammographic findings of malignancy. Procedure Note Erwin Oliveira M.D. - 01/24/2024 EXAM: BI BREAST SCREENING BILATERAL WITH TOMOSYNTHESIS Current study was evaluated with a Computer Aided Detection (CAD) system. INDICATION: Screening mammogram. COMPARISON: Prior exam(s) were available and reviewed for comparison. DENSITY: c. The breast(s) are heterogeneously dense, which may obscuresmall masses. FINDINGS: No mammographic findings of malignancy. IMPRESSION: Negative. RECOMMENDATION: Annual Screening Mammogram ASSESSMENT: BI-RADS: 1: Negative. us Billie Hernandez APRN, C.N.P., D.N.P. IMG BI PROCED URES Final Result * (ABNORMAL) Basic Metabolic Panel (08/26/2023 6:31 PM CDT) Potassium, P 4.5 3.6 - 5.2 mmol/L 08/26/2023 6:52 PM CDT CNFL Sodium, P 138 135 - 145 mmol/L 08/26/2023 6:52 PM CDT CNFL Chloride, P 104 98 - 107 mmol/L 08/26/2023 6:52 PM CDT CNFL Bicarbonate, P 24 22 - 29 mmol/L 08/26/2023 6:52 PM CDT CNFL Anion Gap, P 10 7 - 15 08/26/2023 6:52 PM CDT CNFL BUN (Blood Urea Nitrogen), P 11 6 - 21 mg/dL 08/26/2023 6:52 PM CDT CNFL Creatinine 0.52(L) 0.59 - 1.04 mg/dL 08/26/2023 6:52 PM CDT CNFL Estimated GFR (eGFR) >90 >=60 mL/min/BSA 08/26/2023 6:52 PM CDT CNFL Comment: Estimated GFR calculated using the 2020 CKD_EPI creatinine equation. Calcium, Total, P 8.6(L) 8.8 - 10.2 mg/dL 08/26/2023 6:52 PM CDT CNFL Glucose, P 103 70 - 140 mg/dL 08/26/2023 6:52 PM CDT CNFL Blood (Blood, Venous) 08/26/2023 6:31 PM CDT 08/26/2023 6:33 PM CDT us Pascual Molina APRN, C.N.P., M.S.N. LAB BLOOD ADD-ON Final Result [facility] [address] [place] [address] KASHIF Allan [id number], [facility] CNFL [facility] in [address] [facility] [place] [address] from Last 3 Months or Most Recently Relevant to Health Maintenance Insurance MEDICARE [facility] Care Teams Dimension Specification Inspector Relationship Specialty Start Date End Date Elsewhere, Pcp PCP - General Internal Medicine 11/28/21
== END 2025-05-20 13:14 | disposition home or self-care (01) ==
LOC: RAD 13:19
PROVIDERS: PCP Nurse Practitioner Family; Visit Provider Nurse Practitioner Family
DX: Z12.31 Encounter for screening mammogram for malignant neoplasm of breast (principal); M85.80 Other specified disorders of bone density and structure, unspecified site; M81.0 Age-related osteoporosis without current pathological fracture; Z78.0 Asymptomatic menopausal state
CPT/HCPCS: 77063; 77067; 77080